=== PATIENT | female | born 2000 | race Caucasian/White ===

== ENCOUNTER 2023-09-04 15:56 | Emergency (ER) | payer MEDICAID ==
[~2023-09-04] VITALS: Ht 162.6 cm; Wt 70.3 kg
[2023-09-04 16:10] VITALS: O2SAT 100
[2023-09-04 18:16] VITALS: TEMP 98.2
[2023-09-04] MEDS ORDERED: ACETAMINOPHEN 325MG TABLET PO STA (18:16)
[2023-09-04] MEDS ORDERED: BACITRACIN ZINC OINT UDPKT TOP ONE (18:30)
[2023-09-04] MEDS ORDERED: LIDOCAINE HCL/PF 1% 10 MG/ML 5ML VIAL INFIL ONE (18:30)
[2023-09-04] MEDS ORDERED: BO1 TP (18:56)
[2023-09-04] MEDS ORDERED: IBUP-2029 PO (18:56)
[2023-09-04] MEDS ORDERED: CEPH500C2 MT (18:56)
[2023-09-04 19:41] VITALS: BP 106/68; PULSE 78; RESP 20
== END 2023-09-04 20:01 | disposition home or self-care (01) ==
LOC: ER 15:56
DX: L60.0 Ingrowing nail (principal); L03.032 Cellulitis of left toe
CPT/HCPCS: 11730; 99284; J3490; Z7610; 99283

== ENCOUNTER 2023-09-06 08:21 | Emergency (ER) | payer MEDICAID ==
[~2023-09-06] VITALS: Ht 157.5 cm; Wt 63.0 kg
[~2023-09-06 08:21] MED LIST: BO1 TP; CEPH500C2 MT; IBUP-2029 PO
[2023-09-06 08:50] VITALS: O2SAT 100
[2023-09-06 10:59] VITALS: BP 124/63; PULSE 65; RESP 18; TEMP 98.6
== END 2023-09-06 11:00 | disposition home or self-care (01) ==
LOC: ER 08:21
DX: L60.0 Ingrowing nail (principal); Z98.890 Other specified postprocedural states
CPT/HCPCS: 99281; Z7610